=== PATIENT | male | born 1970 | race Caucasian/White ===

== ENCOUNTER 2017-02-26 14:45 | Emergency (ER) | payer OTHER ==
[2017-02-26 15:46] VITALS: BP 140/95; TEMP 98.1; O2SAT 95
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
[2017-02-26] MEDS ORDERED: LIDOCAINE 1% 10 ML VIAL INJ ONE (16:28)
== END 2017-02-26 17:23 ==
LOC: ER 14:45
DX: S01.511A Laceration without foreign body of lip, initial encounter (principal); I10 Essential (primary) hypertension; Y04.2XXA Assault by strike against or bumped into by another person, initial encounter; Y92.149 Unspecified place in prison as the place of occurrence of the external cause